=== PATIENT | female | born 1955 | race Caucasian/White ===

== ENCOUNTER 2017-06-09 15:07 | Inpatient (IN) | payer MEDICARE, MEDICAID ==
[~2017-06-09] VITALS: Ht 154.9 cm; Wt 64.0 kg
[2017-06-09 16:02] LABS: Basophils # (auto) 0 uL; Basophils % (auto) 0.6 % (0.0-2.0); Eosinophils # (auto) 0.2 uL; Eosinophils % (auto) 1.9 % (0.0-7.0); Hematocrit 46.4 % (36.0-46.0); Lymphocytes % (auto) 37.4 % (10.0-50.0); Mean Corpuscular Hemoglobin 33.7 pg (28.0-32.0); Mean Corpuscular Hgb Conc. 34.5 g/dL (32.0-36.0); Mean Corpuscular Volume 97.7 fL (80.0-100.0); Monocytes # (auto) 0.6 uL; Monocytes % (auto) 7.8 % (0.0-12.0); Neutrophils # (auto) 4.3 uL; Neutrophils % (auto) 52.3 % (37.0-80.0); Nucleated Red Blood Cells % 0.1 %; Platelet Count (auto) 349 10^3/uL (140-450); Red Blood Cells 4.74 10^6/uL (4.0-5.20); Red Cell Distribution Width 13.8 % (11.8-14.3); White Blood Cell 8.1 10^3/uL (4.4-10.8)
[2017-06-09 16:26] LABS: Alanine Aminotransferase 32 U/L (13-56); Albumin 3.9 g/dL (3.4-5.0); Alkaline Phosphatase 105 U/L (45-117); Anion Gap 8 (5-15); Aspartate Aminotransferase 32 U/L (15-37); BUN/Creatinine Ratio 14.6; Bilirubin, Total 0.3 mg/dL (0.2-1.0); Blood Urea Nitrogen 15 mg/dL (7-18); Calcium 9.7 mg/dL (8.5-10.1); Carbon Dioxide 23 mmol/L (21-32); Chloride 108 mmol/L (98-107); GFR African American 71 mL/min; GFR Non-African American 58 mL/min; Glucose 97 mg/dL (74-106); Magnesium 2.5 mg/dL (1.6-2.6); Potassium 4.2 mmol/L (3.5-5.1); Sodium 139 mmol/L (136-145); Total Protein 8.1 g/dL (6.4-8.2)
[2017-06-09] MEDS ORDERED: SODIUM CHLORIDE 0.9% 1,000 ML IV ONE (17:45)
[2017-06-09 21:10] LABS: Urine Bacteria NONE SEEN /hpf (None Seen); Urine Blood Negative /uL (Negative); Urine WBC 1 /hpf (0 - 5)
[2017-06-09 21:20] LABS: Alcohol, Urine < 3.0 mg/dL (0-5); Amphetamine Screen, Urine NEGATIVE (NEGATIVE); Barbiturate Scree,Urine NEGATIVE (NEGATIVE); Benzodiazephine Screen, Urine POSITIVE (NEGATIVE); Cannabinoid Screen, Urine NEGATIVE (NEGATIVE); Cocaine Screen, Urine NEGATIVE (NEGATIVE); Opiate Scree,Urine NEGATIVE (NEGATIVE); Phencyclidine Screen, Urine NEGATIVE (NEGATIVE)
[2017-06-09] MEDS ORDERED: TEMAZEPAM 15 MG CAP PO PRN (21:45)
[2017-06-09] MEDS ORDERED: DOCUSATE SOD 100 MG CAP PO PRN (21:45)
[2017-06-09] MEDS ORDERED: MORPHINE SULFATE 4 MG/ML SYR/VIAL IV PRN (21:45)
[2017-06-09] MEDS ORDERED: NITROGLYCERIN 0.4 MG SL TAB SL PRN (21:45)
[2017-06-09] MEDS ORDERED: ACETAMINOPHEN 325 MG TAB PO PRN (21:45)
[2017-06-09] MEDS ORDERED: ONDANSETRON HCL 4 MG/2 ML VIAL IV PRN (21:45)
[2017-06-09] MEDS: FAMOTIDINE 20 MG TAB PO SCH (22:04)
[2017-06-09 22:41] VITALS: BP 126/80
[2017-06-09] MEDS: HYDROcodone-ACET 5/325MG TAB PO PRN (23:21)
[2017-06-09 23:52] VITALS: BP 126/80
[2017-06-10] MEDS: HYDROcodone-ACET 5/325MG TAB PO PRN ×3 (05:22→14:39)
[2017-06-10 05:29] VITALS: BP 102/55
[2017-06-10] MEDS ORDERED: RIZA10TA24 OR (07:12)
[2017-06-10 07:20] LABS: Basophils # (auto) 0 uL; Basophils % (auto) 0.6 % (0.0-2.0); Eosinophils # (auto) 0.1 uL; Eosinophils % (auto) 1.8 % (0.0-7.0); Hematocrit 41.9 % (36.0-46.0); Hemoglobin 14.1 g/dL (12.2-16.2); Lymphocytes # (auto) 2.8 uL; Lymphocytes % (auto) 38.2 % (10.0-50.0); Mean Corpuscular Hemoglobin 32.9 pg (28.0-32.0); Mean Corpuscular Hgb Conc. 33.6 g/dL (32.0-36.0); Monocytes # (auto) 0.6 uL; Monocytes % (auto) 8.6 % (0.0-12.0); Neutrophils # (auto) 3.7 uL; Neutrophils % (auto) 50.8 % (37.0-80.0); Nucleated Red Blood Cells % 0.2 %; Platelet Count (auto) 299 10^3/uL (140-450); Red Blood Cells 4.27 10^6/uL (4.0-5.20); Red Cell Distribution Width 13.3 % (11.8-14.3); White Blood Cell 7.4 10^3/uL (4.4-10.8)
[2017-06-10] MEDS ORDERED: DIAZ10TA3 PO (07:26)
[2017-06-10] MEDS ORDERED: MAGN400T21 GT (07:27)
[2017-06-10] MEDS ORDERED: SERT20CO7 PO (07:28)
[2017-06-10] MEDS ORDERED: [UNRECOGNIZED DRUG - CODE] PO (07:30)
[2017-06-10] MEDS ORDERED: CHOL1000T GT (07:31)
[2017-06-10] MEDS ORDERED: MIDO2.5T PO (07:32)
[2017-06-10] MEDS ORDERED: ALEN70TA2 PO (07:34)
[2017-06-10 07:44] LABS: Albumin 3.4 g/dL (3.4-5.0); BUN/Creatinine Ratio 14.4; Bilirubin, Total 0.4 mg/dL (0.2-1.0); Calcium 8.8 mg/dL (8.5-10.1); Potassium 3.7 mmol/L (3.5-5.1); Total Protein 6.9 g/dL (6.4-8.2)
[2017-06-10 09:00] VITALS: BP 95/51
[2017-06-10] MEDS: ASPirin 81 mg TAB PO SCH (10:26)
[2017-06-10] MEDS: ENOXAPARIN SOD 40 MG/0.4 ML SYRINGE SC SCH (10:26)
[2017-06-10] MEDS: FAMOTIDINE 20 MG TAB PO SCH ×2 (10:26→22:00)
[2017-06-10 13:00] VITALS: BP 101/45
[2017-06-10] MEDS: SERTRALINE HCL 50 MG TAB PO SCH (16:04)
[2017-06-10] MEDS ORDERED: MIDODRINE HCL 10 MG TAB PO ONE (16:15)
[2017-06-10 17:00] VITALS: BP 97/69
[2017-06-10] MEDS ORDERED: LORazepam 2MG/ML-1ML VIAL IV PRN (19:00)
[2017-06-10] MEDS ORDERED: SUMAtriptan SUCCINATE 25 MG TAB PO ONE (22:30)
[2017-06-10 22:47] VITALS: BP 123/76
[2017-06-11] VITALS (7 sets, daily range): BP systolic 78–120; BP diastolic 59–76
[2017-06-11] MEDS ORDERED: ADENOSINE 54 MG in GIVE UN-DILUTED 0 ML IV STA (08:31)
[2017-06-11] MEDS: SERTRALINE HCL 50 MG TAB PO SCH (10:00)
[2017-06-11] MEDS: CAFFEINE 200 MG PO SCH (10:00)
[2017-06-11] MEDS: ENOXAPARIN SOD 40 MG/0.4 ML SYRINGE SC SCH (10:58)
[2017-06-11] MEDS: FAMOTIDINE 20 MG TAB PO SCH ×2 (11:02→21:44)
[2017-06-11] MEDS: MIDODRINE HCL 10 MG TAB PO SCH (11:07)
[2017-06-11] MEDS: ASPirin 81 mg TAB PO SCH (11:07)
[2017-06-11] MEDS ORDERED: SERT-274 PO (16:40)
[2017-06-11] MEDS ORDERED: ALEN70TA55 PO (16:40)
[2017-06-11] MEDS ORDERED: LAMO200T2 PO (16:40)
[2017-06-11] MEDS: HYDROcodone-ACET 5/325MG TAB PO PRN ×2 (17:03→23:54)
[2017-06-12 05:29] VITALS: BP 115/59
[2017-06-12] MEDS: HYDROcodone-ACET 5/325MG TAB PO PRN (07:55)
[2017-06-12 09:27] VITALS: BP 98/67
[2017-06-12] MEDS: ENOXAPARIN SOD 40 MG/0.4 ML SYRINGE SC SCH (09:28)
[2017-06-12] MEDS: MIDODRINE HCL 10 MG TAB PO SCH (09:28)
[2017-06-12] MEDS: CAFFEINE 200 MG PO SCH (09:29)
[2017-06-12] MEDS: ASPirin 81 mg TAB PO SCH (09:29)
[2017-06-12] MEDS: FAMOTIDINE 20 MG TAB PO SCH (09:29)
[2017-06-12] MEDS ORDERED: SERTRALINE HCL 50 MG TAB PO SCH (10:00)
[2017-06-12] MEDS ORDERED: lamoTRIgine 100 MG TAB PO SCH (10:00)
[2017-06-12 13:00] VITALS: BP 107/59
[2017-06-12 13:36] VITALS: BP 98/67
== END 2017-06-12 14:30 | disposition home or self-care (01) | DRG 316 ==
LOC: ER 15:07 → TELE 15:08 → TELE-WESTW 22:40
PROVIDERS: ADMIT Nurse Practitioner; ATTEND Family Medicine
DX: I95.9 Hypotension, unspecified (principal); F17.210 Nicotine dependence, cigarettes, uncomplicated; I25.10 Atherosclerotic heart disease of native coronary artery without angina pectoris; G43.109 Migraine with aura, not intractable, without status migrainosus; G89.4 Chronic pain syndrome; I10 Essential (primary) hypertension; M79.7 Fibromyalgia; Z82.49 Family history of ischemic heart disease and other diseases of the circulatory system; Z83.3 Family history of diabetes mellitus; Z85.3 Personal history of malignant neoplasm of breast; Z90.10 Acquired absence of unspecified breast and nipple; Z95.0 Presence of cardiac pacemaker; Z88.0 Allergy status to penicillin; Z88.8 Allergy status to other drugs, medicaments and biological substances; Z71.6 Tobacco abuse counseling
CPT/HCPCS: 36415; 70450; 71046; 78452; 80053; 80307; 81001; 83735; 84484; 85025; 93005; 93017; 93306; 93886; 94761; 95819; 96360; 96361; J0153